=== PATIENT | male | born 1965 | race African-American/Black ===

== ENCOUNTER 2017-03-28 07:28 | Emergency (ER) | payer OTHER ==
[~2017-03-28] VITALS: Ht 177.8 cm; Wt 90.9 kg
[2017-03-28 08:57] VITALS: BP 125/88
== END 2017-03-28 08:57 | disposition short-term general hospital (02) ==
LOC: EMS 07:32
DX: N13.2 Hydronephrosis with renal and ureteral calculous obstruction (principal)
CPT/HCPCS: 74176; 99285